=== PATIENT | male | born 1965 | race Caucasian/White ===

== ENCOUNTER → 2016-09-08 09:23 | Outpatient (CLI) | payer MEDICAID ==
[2013-10-08 01:19] VITALS: BMI 18.6
[~2016-09-08 09:23] MED LIST: ATIVAN1 MG PO; BAYER CHEWABLE81 MG PO; CARDIZEM CD240 MG PO; CARDURA2 MG PO; COZAAR100 MG; COZAAR100 MG PO; LOPRESSOR25 MG PO
== END | disposition home or self-care (01) ==
LOC: D.MRI 09:23
DX: M54.5 Low back pain (principal)

== ENCOUNTER → 2016-12-16 15:24 | Outpatient (CLI) | payer MEDICAID ==
[2013-10-08 01:19] VITALS: BMI 18.6
== END | disposition home or self-care (01) ==
LOC: D.MRI 15:24
DX: G43.001 Migraine without aura, not intractable, with status migrainosus (principal)

== ENCOUNTER 2016-12-30 20:14 | Emergency (ER) | payer MEDICAID ==
[2013-10-08 01:19] VITALS: BMI 18.6
== END 2016-12-30 22:50 | disposition home or self-care (01) ==
LOC: D.ER 20:14
DX: R51 Headache (principal); I25.10 Atherosclerotic heart disease of native coronary artery without angina pectoris; I50.9 Heart failure, unspecified; J44.9 Chronic obstructive pulmonary disease, unspecified; I10 Essential (primary) hypertension; I34.1 Nonrheumatic mitral (valve) prolapse; F80.82 Social pragmatic communication disorder; F17.200 Nicotine dependence, unspecified, uncomplicated